=== PATIENT | female | born 1965 | race African-American/Black ===

== ENCOUNTER → 2016-12-02 | Day surgery (SDC) | payer MEDICARE, OTHER ==
[~2016-12-02] MED LIST: AMLO5TAB2 PO; IV RINGERS,LACTATED 1000ML 1,000 ML IV SCH; LIDOCAINE 2% PF Vial for OR 5 ML VIAL. ONE; METF100010 PO; PANT40TA5 PO; PROPOFOL 40 ML IV ONE; VALS40TA2 PO
--- NOTE | 2016-12-02 11:02 | PDOC1 ---
HISTORY & PHYSICAL H&P Carina Muro [id number] 1965 11/27/2016 02:50 PM 10/20 [facility], [facility] OUR PATIENTS COME FIRST [address] [place], [place] [id number] Ph. [phone] Patient: Carina Muro Date of : 1965 Date: 11/27/2016 2:50 PM Visit Type: Office Visit This 51 year old female presents for Abdominal pain. History of Present Illness: 1. Abdominal pain Severity is moderate. Duration is 2 Months. Location is epigastric, midline , RUQ. Associated symptoms include bloating, diarrhea, nausea and vomiting. Pertinent negatives include constipation, diaphoresis and fever. Additional information: Patient has been having significant nausea and abdominal pain and had been given nausea pill and PPI for one month and no response. INTAKE COMMENTS: Intake Comments: Nurse Note: the pt is here today with complaints of abdominal pain. PROBLEM LIST: Problem Description Onset Date Chronic Notes Diabetes mellitus with neurologic complication, without long-term current use of insulin 05/07/2016 Traumatic hematoma of left forearm 11/22/2014 Diabetes mellitus type 2 in obese 05/07/2016 Y Diabetes mellitus without complication 11/09/2009 Y Mapped from [facility] Chronic Conditions table on 07/13/2014 by Joey Caballero. The mapped diagnosis code was Diabetes mellitus without mention of complication,,250.00, added by Vicente Burrows. Onset date 11/09/2009; last addressed on 04/26/2014. Allergic sinusitis 07/26/2015 Bipolar disorder, current episode mixed, severe, without psychotic features Y Hyperlipidemia, unspecified hyperlipidemia type 10/18/2015 Y Left shoulder pain 08/23/2015 Periorbital hematoma of left eye 08/23/2015 Acute recurrent frontal sinusitis 09/13/2015 Spinal enthesopathy of lumbar region 07/31/2016 Medicare annual wellness visit, subsequent 04/16/2016 Acute suppurative otitis media of right ear without spontaneous rupture of tympanic membrane, recurrence not specified 04/16/2016 Nadia vaginitis 04/16/2016 Anemia 11/09/2009 Y Mapped from [facility] Chronic Conditions table on 05/09/2014 by the ICD9 to SNOMED Bulk Mapping Utility. The mapped diagnosis code was Anemia, unspecified, 285.9, added by Vicente Burrows, with responsible provider . Onset date 11/09/2009; last addressed on 06/18/2013. Tendinitis of right shoulder 03/27/2016 Bilateral knee pain 08/23/2015 Allergic rhinitis 08/06/2013 Y Mapped from [facility] Chronic Conditions table on 05/09 by the ICD9 to SNOMED Bulk Mapping Utility. The mapped diagnosis code was Allergic rhinitis, cause unspecified, 477.9, added by Lavonne Drake, with responsible provider Lavonne Drake MD. Onset date 08/06/2013; last addressed on 02/02/2014. Benign essential hypertension 08/06/2013 Y Mapped from [facility] Chronic Conditions table on 05/09/2014 by the ICD9 to SNOMED Bulk Mapping Utility. The mapped diagnosis code was Hypertension, Benign, 401.1, added by Lavonne Drake, with responsible provider Lavonne Drake MD. Onset date 08/06/2013; last addressed on 04/26/2014. Polyarthralgia 08/24/2015 Fibromyalgia 08/24/2015 Adhesive capsulitis of left shoulder 08/24/2015 PAST MEDICAL/SURGICAL HISTORY (Detailed) Disease/disorder Onset Date Management Date Comments R breast cyst removal LAVH D&C Rt Breast BX Partial hysterectomy Bilateral tubal ligation Allergies Anemia bipolar Diabetes DIAGNOSTICS HISTORY: Test Ordered Interpretation Result completed Pulmonary Function Test 07/04/2006 copd 07/04/[address] WITH Contrast 08/24/2012 abnormal Imp: No definite acute orocess seen in the abdomen or pelvis. Possible irregularity (the finding is not certain) assocaiated w\distal small bowel loops. Sigmoid diverticulosis. (L ) renal cyst. 08/21/2012 Test Ordered Ordering Comments Modifier Pulmonary Function Test 07/04/2006 Other Reports Abdomen and Pelvis CT WITH Contrast 08/24/2012 Medications (Active): Started Medication Directions Instruction Stopped 09/03/2016 Diovan HCT 160 mg-12.5 mg tablet TAKE [1] TABLET BY MOUTH ONCE DAILY 11/07/2016 FLONASE 0.05% NASAL SPRAY USE 2 SPRAYS IN EACH NOSTRIL DAILY DIRECTED. 10/24/2010 FreeStyle Lite Strips check blood sugars daily 07/11/2015 gabapentin 300 mg capsule take 1 capsule by oral route 3 times every day 09/03/2016 Norvasc 5 mg tablet take 1 tablet by oral route every day 09/20/2016 pantoprazole 40 mg tablet,delayed release take 1 tablet (40MG) by ORAL route every day in AM 11/07/2016 ProAir HFA 90 mcg/actuation aerosol inhaler inhale 2 puff by inhalation route every 6 hours as needed 07/26/2015 Singulair 10 mg tablet take 1 tablet by oral route every day in the evening 06/05/2016 Symbicort 160 mcg-4.5 mcg/actuation HFA aerosol inhaler inhale 2 puff by inhalation route 2 times every day in the morning and evening 01/03/2016 Voltaren 1 % topical gel apply (2G) by topical route 4 times every day to the affected area(s) 11/07/2016 Zofran 4 mg tablet 1 tid prn nausea 06/08/2015 Zyrtec 10 mg tablet take 1 tablet (10MG) by ORAL route every day at bedtime Allergies: Ingredient Reaction Medication Name Comment NO KNOWN ALLERGIES REVIEW OF SYSTEMS System Neg/Pos Details Constitutional Negative Chills, fever, malaise and weight loss. ENMT Negative Sore throat. Eyes Negative Double vision. Respiratory Negative Dyspnea and wheezing. Cardio Negative Chest pain and irregular heartbeat/palpitations. GI Positive Bloating, Diarrhea, Nausea, Vomiting, See HPI. GI Negative Constipation and see HPI. Negative Dysuria and hematuria. Endocrine Negative Cold intolerance, diaphoresis and heat intolerance. Psych Negative Anxiety. Integumentary Negative Hives and rash. MS Negative Joint pain. Chele/Lymph Negative Easy bleeding and easy bruising. Allergic/Immuno Negative Animals at home and food allergies. VITAL SIGNS Time BP mm/Hg Pulse /min Resp /min Temp F Ht ft Ht in Ht cm Wt lb Wt kg BMI kg/ m2 BSA m2 O2 Sat% 3:14 PM 128/76 90 97.8 5.0 4.00 162.56 163.40 74.117 28.05 1.83 98 MEASURED BY Time Measured by 3:14 PM [facility] PHYSICAL EXAM: Exam Findings Details Constitutional Normal Well developed. Eyes Normal Conjunctiva - Right: Normal, Left: Normal. Sclera - Right: Normal, Left: Normal. Nasopharynx Normal Lips/teeth/gums - Normal. Neck Exam Normal Inspection - Normal. Thyroid gland - Normal. Respiratory Normal Inspection - Normal. Auscultation - Normal. Cardiovascular Normal Regular rate and rhythm. No murmurs, gallops, or rubs. Vascular Normal Pulses - Carotids: Normal, Femoral: Normal, Dorsalis pedis: Normal. Abdomen Normal Inspection - Normal. Anterior palpation - No guarding. No abdominal tenderness. No hepatic enlargement. No splenic enlargement. No hernia. No Ascites. Skin Normal Inspection - Normal. Extremity Normal No edema. Psychiatric Normal Oriented to time, place, person, and situation. Appropriate mood and effect. Assessment/Plan # Detail Type Description 1. Assessment Pain of upper abdomen (R10.10). Patient Plan schedule EGD at Schedule abdominal sonogram. CBC,LFT, Amylase and lipase. Plan Orders Amylase, CBC w/diff today, Hepatic Function Panel today and Lipase to be performed today. Further diagnostic evaluations ordered today include(s) Abdomen Ultrasound; Complete and EGD to be performed today. She is to schedule a follow-up visit with Demarco Drake MD upon completion of work-up Electronically signed by: Demarco Drake MD 11/27/2016 05:00 PM Document generated by: Demarco Drake 11/27/2016 05:00 PM Marlo Jon MD, Family Practice; Oli Barnhart MD Internal Medicine; Saniya Javier MD, Internal Medicine; Lavonne Drake MD Internal Medicine; Demarco Drake MD, Gastroenterology; Og Mabry MD, Rheumatology, [facility], Physical Medicine/Rehab Karissa Escudero APRN ------ 12/02/16 Patient seen and examined. No change in History and physical. DEMARCO DRAKE MD Dec 02, 2016 11:02
--- NOTE | 2016-12-02 12:00 | PDOC4 ---
GI OP Report - Dr. John Date/Time DATE: 12/02/16 TIME: 11:58 Attending Physician Demarco John MD Referring Physician Indications Epigastric abdominal pain Pre-Op See the Anesthesia note for documentation of the administered medications Procedures Upper GI endoscopy Findings - Small hiatus hernia. - Normal stomach. - One duodenal polyp. Biopsied. Clip was placed. Plan - Discharge patient to home. - Patient has a contact number available for emergencies. The signs and symptoms of potential delayed complications were discussed with the patient. Return to normal activities tomorrow. Written discharge instructions were provided to the patient. - Resume regular diet. - Continue present medications. - Await pathology results. - Return to my office in 2 weeks. DEMARCO JOHN MD Dec 02, 2016 12:00
[2016-12-02 12:12] VITALS: BP 150/88
--- NOTE | 2016-12-03 13:45 | PATHOLOGY ---
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 COMMENT: There are no adenomatous changes or evidence of malignancy. (JPM:; d/t: 12/03/16) REPORT ELECTRONICALLY SIGNED BY: Rosalio Boles M.D. DATE/TIME: 12/03/2016 13:44 * * * * * * * * GROSS PATHOLOGY: Received in formalin labeled "Carina Manzanares, duodenal polyp biopsy," is a segment of lambert soft tissue measuring 0.6 cm in maximum dimension. The specimen is submitted entirely in cassette A1. (CAA; 12/02/2016) INITIAL CPT CODE(S): A; 55337 Professional services performed [email or web address] [address] Technical services performed by [email or web address] at [address] [place] [address]. SPECIMEN(S) RECEIVED: A.Duodenal polyp biopsy CLINICAL HISTORY: Abdominal pain PATIENT: CARINA MANZANARES /AGE: 7 1965 (Age: 51) PATIENT #: [id number] ALT CASE #: SPECIMEN COLLECTION DATE: 12/02/2016 SPECIMEN RECEIVED DATE: 12/02/2016 [facility] - [address] [place] [address] - PHONE: [phone] * * * END OF REPORT * * *
== END | disposition home or self-care (01) ==
LOC: ENDOS 10:19
PROVIDERS: ATTEND Internal Medicine Gastroenterology
DX: K31.7 Polyp of stomach and duodenum (principal); K44.9 Diaphragmatic hernia without obstruction or gangrene; M19.049 Primary osteoarthritis, unspecified hand; I10 Essential (primary) hypertension; K21.9 Gastro-esophageal reflux disease without esophagitis; E11.9 Type 2 diabetes mellitus without complications; Z98.42 Cataract extraction status, left eye; Z98.51 Tubal ligation status; Z90.710 Acquired absence of both cervix and uterus
CPT/HCPCS: 43239; 88305; J2704

== ENCOUNTER 2016-12-11 08:45 | Emergency (ER) | payer MEDICARE, OTHER ==
[~2016-12-11] VITALS: Ht 154.9 cm; Wt 73.5 kg
[~2016-12-11 08:45] MED LIST changes: -D-ME118S2 PO
[2016-12-11 08:53] VITALS: BP 136/90
[2016-12-11] MEDS ORDERED: D-ME118S2 PO (09:09)
--- NOTE | 2016-12-11 09:09 | PHYS DOC ---
Past Medical History Past Medical History: Bipolar, Diabetes-Type II, Hypertension Additional Past Medical Histor: BIPOLAR Past Surgical History: Hysterectomy, Other Additional Past Surgical Histo: Tubal ligation, Carpel tunnel R) side, Cyst removal from R) breast, catarac Alcohol Use: None Drug Use: None Adult General Chief Complaint Chief Complaint: COUGH HPI HPI Patient is a 51 year old female who presents emergency room the complain of 4- 5 days of cough, nasal congestion, body aches, sweats and chills. She denies any history of heart or lung disease. Patient is a smoker. She denies antibiotic use, hospitalization or foreign travel within the past 90 days. She denies any ill exposures with others that have similar symptoms. She has not talked to her primary care doctor about this. Review of Systems Review of Systems Constitutional: Denies fever or chills [] Eyes: Denies change in visual acuity, redness, or eye pain [] HENT: Denies nasal congestion or sore throat [] Respiratory: Denies cough or shortness of breath [] Cardiovascular: No additional information not addressed in HPI [] GI: Denies abdominal pain, nausea, vomiting, bloody stools or diarrhea [] : Denies dysuria or hematuria [] Musculoskeletal: Denies back pain or joint pain [] Integument: Denies rash or skin lesions [] Neurologic: Denies headache, focal weakness or sensory changes [] Endocrine: Denies polyuria or polydipsia [] Allergies Allergies Allergies Coded Allergies Type Severity Reaction Last Updated Verified No Known Drug Allergies 12/02/16 No Physical Exam Physical Exam Constitutional: Well developed, well nourished, no acute distress, non-toxic appearance. [] HENT: Normocephalic, atraumatic, bilateral external ears normal, oropharynx moist, no oral exudates, clear rhinorrhea with boggy nasal mucosa. [] Eyes: PERRLA, EOMI, conjunctiva normal, no discharge. [] Neck: Normal range of motion, no tenderness, supple, no stridor. There is no meningismus. There is bilateral anterior and posterior cervical lymphadenopathy. Cardiovascular:Heart rate regular rhythm, no murmur [] Lungs & Thorax: There is no respiratory distress or respiratory fatigue. Patient is able speak in full sentences. Lungs are clear to auscultation bilaterally. Abdomen: Bowel sounds normal, soft, no tenderness, no masses, no pulsatile masses. [] Skin: Warm, dry, no erythema, no rash. [] Back: No tenderness, no CVA tenderness. [] Extremities: No tenderness, no cyanosis, no clubbing, ROM intact, no edema. [] Neurologic: Alert and oriented X 3, normal motor function, normal sensory function, no focal deficits noted. [] Psychologic: Affect normal, judgement normal, mood normal. [] Current Patient Data Vital Signs Vital Signs Date Time Temp Pulse Resp B/P Pulse Ox O2 Delivery O2 Flow Rate FiO2 12/11/16 08:53 97.4 84 18 100 Room Air 97.4 EKG EKG [] Radiology/Procedures Radiology/Procedures [] Course & Med Decision Making Course & Med Decision Making Pertinent Labs and Imaging studies reviewed. (See chart for details) [] Dragon Disclaimer Dragon Disclaimer This electronic medical record was generated, in whole or in part, using a voice recognition dictation system. Departure Departure Impression: Primary Impression: Upper respiratory infection with cough and congestion Disposition: 01 HOME, SELF-CARE Condition: GOOD Referrals: TEJINDER JOHN MD (PCP) Patient Instructions: Upper Respiratory Infection, Adult, [id number] Additional Instructions: 1. Take the medication as prescribed. 2. Review the discharge instructions for self-care and reasons to return to the emergency department. 3. Take the medication as prescribed. You can take [id number] Afrin nasal spray twice a day for 3 days as well as an [id number] decongestant. 4. Call your primary care doctor's office this afternoon to schedule follow-up appointment for reevaluation for next week. Scripts D-Methorphan Hb/Prometh Hcl (Promethazine-Dm Syrup)118 Ml Syrup5 Ml PO PRN Q6HRS COUGH #120 ML Prov:RENETTA CAMPUZANO 12/11/16 RENETTA CAMPUZANO Dec 11, 2016 09:09
== END 2016-12-11 09:13 | disposition home or self-care (01) ==
LOC: ER 08:45
DX: J06.9 Acute upper respiratory infection, unspecified (principal); M79.1 Myalgia; E11.9 Type 2 diabetes mellitus without complications; I10 Essential (primary) hypertension; F31.9 Bipolar disorder, unspecified; F17.200 Nicotine dependence, unspecified, uncomplicated
CPT/HCPCS: 99283

== ENCOUNTER → 2016-12-11 | Outpatient (CLI) | payer MEDICARE, OTHER ==
[2016-12-02 12:12] VITALS: BP 150/88
[~2016-12-11] MED LIST changes: +D-ME118S2 PO; -IV RINGERS,LACTATED 1000ML 1,000 ML IV SCH; -LIDOCAINE 2% PF Vial for OR 5 ML VIAL. ONE; -PROPOFOL 40 ML IV ONE
--- NOTE | 2016-12-11 08:57 | RAD ---
EXAM: Right upper quadrant ultrasound. HISTORY: Right upper quadrant pain. Nausea and vomiting. COMPARISON: None. FINDINGS: Sonographic evaluation of the right upper quadrant was performed. Hyperechogenicity of the hepatic parenchyma suggests mild diffuse hepatic steatosis. There are no focal lesions. The gallbladder is unremarkable without evidence of stones, wall thickening or pericholecystic fluid. There is no sonographic Stanford sign. The common duct measures 5 mm. The visualized portions of the head and body of the pancreas reveal no abnormality. The right kidney measures at least 8.1 cm. This is likely an underestimate. Cortical thickness and echogenicity are preserved. There is no hydronephrosis. The visualized portions of the abdominal aorta and inferior vena cava are grossly patent and normal in caliber. IMPRESSION: 1. Mild diffuse hepatic steatosis. 2. The right kidney measures small at 8.1 cm. This may be an underestimate as there is no clear cortical atrophy.
== END | disposition home or self-care (01) ==
LOC: US 07:58
PROVIDERS: ATTEND Internal Medicine Gastroenterology
DX: R10.9 Unspecified abdominal pain (principal); K76.0 Fatty (change of) liver, not elsewhere classified
CPT/HCPCS: 76705

== ENCOUNTER → 2016-12-27 | Outpatient (CLI) | payer MEDICARE, OTHER ==
[2016-12-11 08:53] VITALS: BP 136/90
[~2016-12-27] VITALS: Ht 154.9 cm; Wt 73.9 kg
[~2016-12-27] MED LIST changes: +D-ME118S2 PO; +SINCALIDE 1.5 MCG in IV NORMAL SALINE 50ML 30 ML IV ONE
--- NOTE | 2016-12-27 10:15 | RAD ---
EXAM: Nuclear hepatobiliary scan with ejection fraction. HISTORY: Abdominal pain/nausea. TECHNIQUE: Serial static images are obtained of the liver and biliary system in a frontal projection following IV administration of 5.5 mCi of technetium-99m Choletec. After filling of the gallbladder, 1.5 mcg of sincalide were infused over 30 minutes and dynamic imaging continued over this period. The gallbladder ejection fraction was calculated. FINDINGS: There is prompt hepatic clearance of tracer from the blood pool. There is homogeneous distribution throughout the liver. There is normal filling of the gallbladder and normal emptying into the biliary system and small bowel. The gallbladder ejection fraction is 90.9% (normal >35%). IMPRESSION: 1. Normal gallbladder ejection fraction.
== END | disposition home or self-care (01) ==
LOC: NM 06:46
PROVIDERS: ATTEND Internal Medicine Gastroenterology
DX: R10.9 Unspecified abdominal pain (principal)
CPT/HCPCS: 78226; 96374; 96375; A9537; J2805

== ENCOUNTER → 2017-01-28 | Outpatient (CLI) | payer MEDICARE, OTHER ==
[~2017-01-28] MED LIST changes: -SINCALIDE 1.5 MCG in IV NORMAL SALINE 50ML 30 ML IV ONE
--- NOTE | 2017-01-28 12:56 | RAD ---
Radionuclide gastric emptying study, 01/28/2017: History: Abdominal pain The study was performed utilizing a solid test meal radiolabeled with 2.0 mCi of technetium 99m sulfur colloid. Over the course of 1 hour there is only minimal gastric emptying visualized. The time/activity curve is relatively flat. An accurate T1/2 cannot be calculated in this situation. IMPRESSION: Markedly delayed gastric emptying.
== END | disposition home or self-care (01) ==
LOC: NM 06:54
PROVIDERS: ATTEND Internal Medicine Gastroenterology
DX: K30 Functional dyspepsia (principal); R11.2 Nausea with vomiting, unspecified
CPT/HCPCS: 78264; A9541

== ENCOUNTER 2017-03-16 20:08 | Emergency (ER) | payer MEDICARE, OTHER ==
[~2017-03-16] VITALS: Ht 154.9 cm; Wt 73.5 kg
[2017-03-16 21:13] LABS: BASO % 0 % (0-3); EOS % 0 % (0-3); HEMATOCRIT 41.9 % (36.0-47.0); LYMPH # 1.1 x10^3/uL (1.0-4.8); LYMPH % 16 % (24-48); MEAN CORPUSCULAR HEMOGLOBIN 29 pg (25-35); MEAN CORPUSCULAR HGB CONC 33 g/dL (31-37); MEAN CORPUSCULAR VOLUME 86 fL (79-100); MONO % 9 % (0-9); NEUT % 75 % (31-73); PLATELET COUNT 312 x10^3/uL (140-400); RED BLOOD COUNT 4.88 x10^6/uL (3.50-5.40); RED CELL DISTRIBUTION WIDTH 15.2 % (11.5-14.5); WHITE BLOOD COUNT 6.6 x10^3/uL (4.0-11.0)
[2017-03-16] MEDS ORDERED: ONDA4TAB10 SL (21:15)
[2017-03-16] MEDS ORDERED: DICY10CA53 PO (21:15)
--- NOTE | 2017-03-16 21:15 | PHYS DOC ---
Past Medical History Past Medical History: Bipolar, Diabetes-Type II, Hypertension Additional Past Medical Histor: BIPOLAR Past Surgical History: Hysterectomy, Other Additional Past Surgical Histo: Tubal ligation, Carpel tunnel R) side, Cyst removal from R) breast, catarac Additional Information: 5 CIGARETTES A DAY Alcohol Use: None Drug Use: None Adult General Chief Complaint Chief Complaint: NAUSEA/VOMITING/DIARRHA HPI HPI 51-year-old female presenting the emergency department with nausea vomiting and diarrhea all day. She reports having a few episodes of nonbloody nonbilious emesis. She reports suspicious food intake earlier. She has a cramping sensation in her abdomen but denies severe abdominal pain. The sensation is intermittent nonradiating mild and without alleviating factors. Review of systems is negative for chest pain shortness of breath fevers chills. She denies blood in her stools or vomit. All other review of systems is negative unless otherwise noted in history of present illness. Review of Systems Review of Systems SEE ABOVE. Current Medications Current Medications Current Medications Medications (Trade) Dose Ordered Sig/Adilene Start Time Stop Time Status Last Admin Dose Admin Hydromorphone HCl (Dilaudid) 0.5 mg 1X ONCE 03/16/17 23:00 03/16/17 23:01 DC 03/16/17 23:12 0.5 MG Info (Do NOT chart on this entry -- for MONITORING) 1 each PRN DAILY PRN 03/16/17 22:30 03/18/17 22:29 Iohexol (Omnipaque 300 Mg/ml) 75 ml STK-MED ONCE 03/16/17 22:26 03/16/17 22:27 DC Ondansetron HCl (Zofran) 4 mg 1X ONCE 03/16/17 23:00 03/16/17 23:01 DC 03/16/17 23:12 4 MG Sodium Chloride 1,000 ml @ 1,000 mls/hr 1X ONCE 03/16/17 21:30 03/16/17 22:29 DC 03/16/17 21:55 1,000 MLS/HR Allergies Allergies Allergies Coded Allergies Type Severity Reaction Last Updated Verified No Known Drug Allergies 12/02/16 No Physical Exam Physical Exam Constitutional: Well developed, well nourished, no acute distress, non-toxic appearance. HENT: Normocephalic, atraumatic, bilateral external ears normal, oropharynx moist, no oral exudates, nose normal. Eyes: PERRLA, EOMI, conjunctiva normal, no discharge. [] Neck: Normal range of motion, no tenderness, supple, no stridor. Cardiovascular:Heart rate regular rhythm, no murmur [] Lungs & Thorax: Bilateral breath sounds clear to auscultation Abdomen: Abdomen is soft and mildly tender generally without rebound tenderness or guarding. Skin: Warm, dry, no erythema, no rash. [] Back: No tenderness, no CVA tenderness. Extremities: No tenderness, no cyanosis, no clubbing, ROM intact, no edema. [] Neurologic: Alert and oriented X 3, normal motor function, normal sensory function, no focal deficits noted. Psychologic: Affect normal, judgement normal, mood normal. [] Current Patient Data Vital Signs Vital Signs Date Time Temp Pulse Resp B/P (MAP) Pulse Ox O2 Delivery O2 Flow Rate FiO2 03/16/17 20:19 97.7 88 22 158/97 (117) 98 Room Air 97.7 Lab Values Laboratory Tests Test 03/16/17 20:33 03/16/17 21:42 White Blood Count 6.6 x10^3/uL (4.0-11.0) Red Blood Count 4.88 x10^6/uL (3.50-5.40) Hemoglobin 14.0 g/dL (12.0-15.5) Hematocrit 41.9 % (36.0-47.0) Mean Corpuscular Volume 86 fL (79-100) Mean Corpuscular Hemoglobin 29 pg (25-35) Mean Corpuscular Hemoglobin Concent 33 g/dL (31-37) Red Cell Distribution Width 15.2 % (11.5-14.5) H Platelet Count 312 x10^3/uL (140-400) Neutrophils (%) (Auto) 75 % (31-73) H Lymphocytes (%) (Auto) 16 % (24-48) L Monocytes (%) (Auto) 9 % (0-9) Eosinophils (%) (Auto) 0 % (0-3) Basophils (%) (Auto) 0 % (0-3) Neutrophils # (Auto) 4.9 x10^3uL (1.8-7.7) Lymphocytes # (Auto) 1.1 x10^3/uL (1.0-4.8) Monocytes # (Auto) 0.6 x10^3/uL (0.0-1.1) Eosinophils # (Auto) 0.0 x10^3/uL (0.0-0.7) Basophils # (Auto) 0.0 x10^3/uL (0.0-0.2) Sodium Level 139 mmol/L (136-145) Potassium Level 3.3 mmol/L (3.5-5.1) L Chloride Level 100 mmol/L (98-107) Carbon Dioxide Level 27 mmol/L (21-32) Anion Gap 12 (6-14) Blood Urea Nitrogen 14 mg/dL (7-20) Creatinine 1.0 mg/dL (0.6-1.0) Estimated GFR (Cockcroft-Gault) 71.3 BUN/Creatinine Ratio 14 (6-20) Glucose Level 99 mg/dL (70-99) Calcium Level 8.8 mg/dL (8.5-10.1) Total Bilirubin 0.5 mg/dL (0.2-1.0) Aspartate Amino Transferase (AST) 23 U/L (15-37) Alanine Aminotransferase (ALT) 30 U/L (14-59) Alkaline Phosphatase 56 U/L (46-116) Total Protein 7.9 g/dL (6.4-8.2) Albumin 4.1 g/dL (3.4-5.0) Albumin/Globulin Ratio 1.1 (1.0-1.7) Lipase 169 U/L (73-393) Urine Collection Type Unknown Urine Color Yellow Urine Clarity Clear Urine pH 5.5 Urine Specific [place] 1.025 Urine Protein Negative mg/dL (NEG-TRACE) Urine Glucose (UA) Negative mg/dL (NEG) Urine Ketones (Stick) Negative mg/dL (NEG) Urine Blood Negative (NEG) Urine Nitrite Negative (NEG) Urine Bilirubin Negative (NEG) Urine Urobilinogen Dipstick 0.2 mg/dL (0.2 mg/dL) Urine Leukocyte Esterase Negative (NEG) Urine RBC 0 /HPF (0-2) Urine WBC Occ /HPF (0-4) Urine Squamous Epithelial Cells Mod /LPF Urine Bacteria Few /HPF (0-FEW) Urine Mucus Mod /LPF Laboratory Tests 03/16/17 20:33 Laboratory Tests 03/16/17 20:33 EKG EKG [] Radiology/Procedures Radiology/Procedures [] Course & Med Decision Making Course & Med Decision Making Pertinent Labs and Imaging studies reviewed. (See chart for details) [] 51-year-old female presenting to the emergency department today with nausea vomiting and diarrhea. Vital signs afebrile normal heart rate. Saturating well on room air. Pertinent physical exam findings showed a soft mildly tender abdomen without rebound tenderness or guarding. Appendix and gallbladder nontender. Blood work obtained. CT the abdomen pelvis obtained. The patient was given IV pain and nausea medications. On reexamination the patient's symptoms had improved significantly. The patient was then discharged home in stable condition to follow up with their primary care physician over the next 2-3 days. They were to return if their symptoms worsened or if they were concerned for any reason. [id number] discharge instructions and return precautions were given. Patient's questions were answered to their satisfaction. Patient is comfortable plan. Dragon Disclaimer Dragon Disclaimer This electronic medical record was generated, in whole or in part, using a voice recognition dictation system. Departure Departure Impression: Primary Impression: Nausea vomiting and diarrhea Disposition: 01 HOME, SELF-CARE Condition: STABLE Referrals: TEJINDER JOHN MD (PCP) Patient Instructions: Diarrhea, Nausea and Vomiting Additional Instructions: Thank you for allowing us to participate in your care today. Followup with your primary care physician in 3 days if your symptoms do not improve. If you do not have a primary care provider you can ask for a list of our primary care providers. Return to the emergency department you have any new or concerning findings. This should be evaluated by the primary care physician and any necessary consulting services for continued management within a few days after discharge. Return to emergency room if you have any new or concerning symptoms including but not limited to fever, chills, nausea, vomiting, intractable pain, any new rashes, chest pain, shortness of air, uncontrolled bleeding, difficulty breathing, and/or vision loss. You may have been prescribed medication that can change in your level of thinking and ability to operate machinery. These medications include hydrocodone and Ativan. Also, Benadryl has been known to do this as well. Be sure to check with your pharmacist and ask if the medications you've prescribed can affect your level of consciousness. I recommend not operating heavy machinery or driving while on medication such as these. Scripts Dicyclomine Hcl (BENTYL) 10 Mg Capsule 1 CAP PO TID, #9 CAP 1 Refill Prov: AMOL KOHLER MD 03/16/17 Ondansetron (ZOFRAN ODT) 4 Mg Tab.rapdis 1 TAB SL PRN Q8HRS Y for NAUSEA, #6 TAB Prov: AMOL KOHLER MD 03/16/17 AMOL KOHLER MD March 16, 2017 21:15
[2017-03-16 21:26] LABS: CALCIUM 8.8 mg/dL (8.5-10.1); GFR 71.3; POTASSIUM 3.3 mmol/L (3.5-5.1)
[2017-03-16] MEDS ORDERED: IV NORMAL SALINE 1000ML BAG 1,000 ML IV ONE (21:30)
[2017-03-16] MEDS ORDERED: ONDANSETRON PF 4 MG/2 ML VIAL. IV ONE ×2 (21:30→23:00)
[2017-03-16 21:32] LABS: ALBUMIN 4.1 g/dL (3.4-5.0); ALBUMIN/GLOBULIN RATIO 1.1 (1.0-1.7); TOTAL BILIRUBIN 0.5 mg/dL (0.2-1.0); TOTAL PROTEIN 7.9 g/dL (6.4-8.2)
[2017-03-16 22:01] LABS: BILIRUBIN,URINE NEGATIVE (NEG); GLUCOSE,URINE NEGATIVE (NEG); NITRITE,URINE NEGATIVE (NEG); PH,URINE 5.5; PROTEIN,URINE NEGATIVE (NEG-TRACE); UROBILINOGEN,URINE 0.2 mg/dL (0.2 mg/dL)
[2017-03-16 22:11] LABS: BACTERIA,URINE FEW /HPF (0-FEW); RBC,URINE 0 /HPF (0-2); SQUAMOUS EPITHELIAL CELL,UR MOD /LPF; WBC,URINE OCC /HPF (0-4)
[2017-03-16] MEDS ORDERED: IOHEXOL 300 MG/ML 75 ML VIAL ONE (22:26)
[2017-03-16] MEDS ORDERED: CONTRAST GIVEN MC PRN (22:30)
[2017-03-16] MEDS ORDERED: IOHEXOL 300 MG/ML 75 ML VIAL IV ONE (23:00)
[2017-03-16] MEDS ORDERED: HYDROmorphone 2 MG/ML VIAL IV ONE (23:00)
[2017-03-16 23:09] VITALS: BP 162/88
--- NOTE | 2017-03-16 23:17 | RAD ---
CT abdomen and pelvis with contrast History: Abdominal pain Technique: After the administration of intravenous contrast, CT imaging was performed of the abdomen and pelvis. No oral contrast was given as per request. Multiplanar images are reviewed. Exposure: One or more of the following individualized dose reduction techniques were utilized for this examination: 1. Automated exposure control 2. Adjustment of the mA and/or kV according to patient size 3. Use of iterative reconstruction technique. Contrast: 75 cc Omnipaque 300 Comparison: None Findings: There is no significant abnormality of the visualized lung bases. There is no significant focal abnormality of the liver, spleen, pancreas, adrenal glands. There is probable hepatic steatosis. There is 2.2 cm hypodense lesion of the inferior left kidney, density measures more suggestive of a cyst 19 Hounsfield units. There is a small accessory spleen. Both kidneys enhance without hydronephrosis. Gallbladder is present without obvious intraluminal abnormality by CT. Accurate evaluation of bowel is limited without oral contrast. There is no significant inflammatory change adjacent to the bowel. There is no evidence of bowel obstruction, free fluid, or free air. Appendix is not clearly identified. There are some air-fluid levels in the colon including rectosigmoid colon. There is very small fat-containing umbilical hernia. The bladder has a normal configuration. Impression: 1. Appendix is not clearly identified on this exam. There are some nonspecific air-fluid levels in the colon, it could be associated with diarrheal state. 2. There is likely hepatic steatosis. 3. Hypodense lesion of the inferior left kidney is most likely a cyst. Electronically signed by: Rodrigo Flower MD (03/16/2017 11:14 PM)
== END 2017-03-16 23:45 | disposition home or self-care (01) ==
LOC: ER 20:08
DX: R11.2 Nausea with vomiting, unspecified (principal); R19.7 Diarrhea, unspecified; R10.84 Generalized abdominal pain; F31.9 Bipolar disorder, unspecified; E11.9 Type 2 diabetes mellitus without complications; I10 Essential (primary) hypertension; F17.210 Nicotine dependence, cigarettes, uncomplicated; Z98.51 Tubal ligation status; Z90.710 Acquired absence of both cervix and uterus
CPT/HCPCS: 36415; 74177; 80053; 81001; 83690; 85027; 96361; 96374; 96375; 96376; 99285; J1170; J2405; J7030; Q9967

== ENCOUNTER 2018-03-21 09:20 | Emergency (ER) | payer MEDICARE, OTHER | END 2018-03-21 09:53 | disposition home or self-care (01) | LOC: ER 09:20 | DX: R05 Cough (principal); E11.9 Type 2 diabetes mellitus without complications; I10 Essential (primary) hypertension; F31.9 Bipolar disorder, unspecified | CPT/HCPCS: 99283 ==

== ENCOUNTER 2018-06-05 17:13 | Emergency (ER) | payer MEDICARE, OTHER ==
[~2018-06-05] VITALS: Ht 154.9 cm; Wt 73.5 kg
[~2018-06-05 17:13] MED LIST changes: +DICY10CA53 PO; +DOXY100T PO; +ONDA4TAB10 SL
[2018-06-05 17:17] VITALS: BP 146/79
[2018-06-05] MEDS ORDERED: IBUPROFEN 800 MG TABLET. PO ONE (18:00)
[2018-06-05] MEDS ORDERED: CYCL10TA2 PO (18:17)
[2018-06-05] MEDS ORDERED: TRAM50TA PO (18:17)
--- NOTE | 2018-06-05 18:17 | PHYS DOC ---
Past Medical History Past Medical History: Bipolar, Diabetes-Type II, Hypertension, Sciatica Additional Past Medical Histor: BIPOLAR Past Surgical History: Hysterectomy, Tubal ligation, Other Additional Past Surgical Histo: Eye surgery, Carpel tunnel R) side, Cyst removal from R) breast Alcohol Use: None Drug Use: None Adult General Chief Complaint Chief Complaint: BACK PAIN OR INJURY [facility] HPI Patient is a 53 year old F who presents with right lower back pain and bilateral hand pain. Patient reports she tripped and fell down a couple of stairs two days ago and injured her back. She denies radiation of pain or loss of bladder or bowel control. Hx of sciatica. Patient also c/o pain to cedrick hands. She reports she had carpal tunnel release several years ago, but does continue to do repetitive work with her hands. She does not have her wrist splint from surgery. Review of Systems Review of Systems Constitutional: Denies fever or chills [] Cardiovascular: No additional information not addressed in HPI [] Musculoskeletal: Back pain, bilateral hand pain Integument: Denies rash or skin lesions [] Neurologic: Denies headache, focal weakness or sensory changes [] All other systems were reviewed and found to be within normal limits, except as documented in this note. Current Medications Current Medications Current Medications Medications (Trade) Dose Ordered Sig/Adilene Start Time Stop Time Status Last Admin Dose Admin Ibuprofen (Motrin) 800 mg 1X ONCE 06/05/18 18:00 06/05/18 18:01 DC 06/05/18 17:41 800 MG Allergies Allergies Allergies Coded Allergies Type Severity Reaction Last Updated Verified No Known Drug Allergies 12/02/16 No Physical Exam Physical Exam Constitutional: Well developed, well nourished, no acute distress, non-toxic appearance. [] HENT: Normocephalic, atraumatic Eyes: PERRLA, EOMI, conjunctiva normal, no discharge. [] Neck: Normal range of motion, no tenderness, supple, no stridor. [] Cardiovascular:Heart rate regular rhythm, no murmur [] Lungs & Thorax: Bilateral breath sounds clear to auscultation [] Skin: Warm, dry, no erythema, no rash. [] Musculoskeletal: Tenderness to right lower back, bilateral hand pain, normal range of motion, tender to palpation Neurologic: Alert and oriented X 3, normal motor function, normal sensory function, no focal deficits noted. [] Psychologic: Affect normal, judgement normal, mood normal. [] Current Patient Data Vital Signs Vital Signs Date Time Temp Pulse Resp B/P (MAP) Pulse Ox O2 Delivery O2 Flow Rate FiO2 06/05/18 17:17 97.5 92 16 146/79 (101) 98 Room Air 97.5 EKG EKG [] Radiology/Procedures Radiology/Procedures X-ray lumber spine -- no acute findings[] Course & Med Decision Making Course & Med Decision Making Pertinent Labs and Imaging studies reviewed. (See chart for details) Patient yelling at staff saying she doesn't want tramadol. She threw the prescription at the RN and yelled at her mother hurry up. Plan: Tramadol Rx, Flexeril Rx, bilateral Velcro wrist splints, follow up with PCP, return precautions reviewed Dragon Disclaimer Dragon Disclaimer This electronic medical record was generated, in whole or in part, using a voice recognition dictation system. Departure Departure Impression: Primary Impression: Back pain Additional Impression: Hand pain Disposition: 01 HOME, SELF-CARE Condition: IMPROVED Referrals: TEJINDER JOHN MD (PCP) Patient Instructions: Back Pain, Adult, Carpal Tunnel Syndrome Scripts Cyclobenzaprine Hcl (CYCLOBENZAPRINE HCL) 10 Mg Tablet 1 TAB PO TID, #21 TAB Prov: ALMA BISHOP APRN 06/05/18 Tramadol Hcl (TRAMADOL HCL) 50 Mg Tablet 50 MG PO Q6HRS PRN for PAIN, #10 TAB Prov: ALMA BISHOP APRN 06/05/18 Problem Qualifiers Primary Impression: Back pain Back pain location: low back pain Chronicity: acute Back pain laterality: right Sciatica presence: without sciatica Qualified Codes: M54.5 - Low back pain Additional Impression: Hand pain Laterality: bilateral Qualified Codes: M79.641 - Pain in right hand; M79.642 - Pain in left hand ALMA BISHOP APRN Jun 05, 2018 18:17
--- NOTE | 2018-06-06 07:35 | RAD ---
Indication: Trauma with fall x2 days. Low back pain. TECHNIQUE: Multiple views of the lumbar spine COMPARISON: None FINDINGS: There are 5 lumbar type vertebral bodies. Lumbar spine is in normal anatomic alignment. No compression deformities. Intervertebral disc spaces are maintained. Minimal bony spurring seen at the endplates. Facet joints are in within normal limits. Mild bilateral SI joint arthritis, right more than left. Because of the density seen projecting at the expected location of the left kidney which may represent a renal stone IMPRESSION: No acute osseous findings in the lumbar spine. Calcific density projecting over the expected location of the left kidney may represent a renal stone. Electronically signed by: Wilfredo Drake DO (06/06/2018 7:31 AM) [facility]
== END 2018-06-05 18:31 | disposition home or self-care (01) ==
LOC: ER 17:13
DX: M54.5 Low back pain (principal); G89.11 Acute pain due to trauma; M79.642 Pain in left hand; M79.641 Pain in right hand; F31.9 Bipolar disorder, unspecified; E11.9 Type 2 diabetes mellitus without complications; I10 Essential (primary) hypertension; W01.0XXA Fall on same level from slipping, tripping and stumbling without subsequent striking against object, initial encounter; Y93.89 Activity, other specified; Y92.89 Other specified places as the place of occurrence of the external cause; Y99.8 Other external cause status
CPT/HCPCS: 72100; 99284

== ENCOUNTER 2018-10-11 14:53 | Emergency (ER) | payer MEDICARE, OTHER ==
[~2018-10-11] VITALS: Ht 154.9 cm; Wt 73.5 kg
[~2018-10-11 14:53] MED LIST changes: -AMLO5TAB2 PO; +AMLO5TAB7 PO; +CYCL10TA2 PO; +TRAM50TA PO
[2018-10-11] MEDS ORDERED: AZIT250T6 PO (15:29)
[2018-10-11] MEDS ORDERED: METH4TAB2 PO (15:29)
[2018-10-11] MEDS ORDERED: BENZ100C PO (15:29)
[2018-10-11] MEDS ORDERED: IPRATRPIUM/ALBUTEROL 0.5/2.5MG 3 ML NEBU. NEB ONE (15:30)
[2018-10-11] MEDS ORDERED: IPRATRPIUM/ALBUTEROL 0.5/2.5MG 3 ML NEBU. ONE (15:30)
--- NOTE | 2018-10-11 15:31 | PHYS DOC ---
Past Medical History Past Medical History: Bipolar, Diabetes-Type II, Hypertension, Sciatica Additional Past Medical Histor: BIPOLAR Past Surgical History: Hysterectomy, Tubal ligation, Other Additional Past Surgical Histo: Eye surgery, Carpel tunnel R) side, Cyst removal from R) breast Alcohol Use: None Drug Use: None Adult General Chief Complaint Chief Complaint: COUGH HPI HPI Patient is a 53 year old female who presents with states she's had upper respiratory infection for the last 2 weeks. She states she went to her doctor on the and was told she was flu negative and had an upper history infection versus give her Cipro for. She states that she is starting to feel slightly better saying that her throat doesn't hurt and she is been not running a fever. She states she still not fully feeling better yet. Patient states that her only history is hypertension and she does smoke. She is 90% on room air, 87 heart rate, 150/92. Review of Systems Review of Systems Constitutional: Denies fever or chills [] Eyes: Denies change in visual acuity, redness, or eye pain [] HENT: nasal congestion or denies sore throat [] Respiratory: cough or shortness of breath [] Cardiovascular: No additional information not addressed in HPI [] GI: Denies abdominal pain, nausea, vomiting, bloody stools or diarrhea [] : Denies dysuria or hematuria [] Musculoskeletal: Generalized body aches. Denies back pain or joint pain [] Integument: Denies rash or skin lesions [] Neurologic: Denies headache, focal weakness or sensory changes [] All other systems were reviewed and found to be within normal limits, except as documented in this note. Current Medications Current Medications Current Medications Medications (Trade) Dose Ordered Sig/Adilene Start Time Stop Time Status Last Admin Dose Admin Albuterol/ Ipratropium (Duoneb) 3 ml STK-MED ONCE 10/11/18 15:30 10/11/18 15:31 DC Allergies Allergies Allergies Coded Allergies Type Severity Reaction Last Updated Verified No Known Drug Allergies 12/02/16 No Physical Exam Physical Exam Constitutional: Well developed, well nourished, no acute distress, non-toxic appearance. [] HENT: Normocephalic, atraumatic, bilateral external ears normal, oropharynx moist, no oral exudates, nose normal. Throat is reddened without exudates. [] Eyes: PERRLA, EOMI, conjunctiva normal, no discharge. [] Neck: Normal range of motion, no tenderness, supple, no stridor. [] Cardiovascular:Heart rate regular rhythm, no murmur [] Lungs & Thorax: Bilateral upper lobes have wheezes and lower lobes are diminished. Abdomen: Bowel sounds normal, soft, no tenderness, no masses, no pulsatile masses. [] Skin: Warm, dry, no erythema, no rash. [] Back: No tenderness, no CVA tenderness. [] Extremities: No tenderness, no cyanosis, no clubbing, ROM intact, no edema. [] Neurologic: Alert and oriented X 3, normal motor function, normal sensory function, no focal deficits noted. [] Psychologic: Affect normal, judgement normal, mood normal. [] Current Patient Data Vital Signs Vital Signs Date Time Temp Pulse Resp B/P (MAP) Pulse Ox O2 Delivery O2 Flow Rate FiO2 10/11/18 15:57 86 23 162/86 (111) 95 Room Air 10/11/18 15:10 97.5 97.5 EKG EKG [] Radiology/Procedures Radiology/Procedures [] Course & Med Decision Making Course & Med Decision Making Patient is a 53 year old female who presents with states she's had upper respiratory infection for the last 2 weeks. She states she went to her doctor on the and was told she was flu negative and had an upper history infection versus give her Cipro for. She states that she is starting to feel slightly better saying that her throat doesn't hurt and she is been not running a fever. She states she still not fully feeling better yet. Patient states that her only history is hypertension and she does smoke. She is 90% on room air, 87 heart rate, 150/92. Alert and oriented. Skin is pink warm and dry. He gets membranes are moist. She speaks in full clear sentences. States that she does feel slightly short of air states that her back and ribs hurt from coughing and states that she is still coughing up some mucus but she's not been looking at the color. Upper lung lobes bilaterally have wheezes but diminished in lower lung lobes bilaterally. She is afebrile. Abdomen is soft and nontender. She denies any chest pain, dizziness, nausea, vomiting, diarrhea, abdominal pain. There is but there are no exudates. Abdomen is soft and nontender. Bilateral ear tympanic some pearly white. She states that she does have a albuterol inhaler at home states get bronchitis. I switched patient's antibiotics to azithromycin, given her prescription for Medrol Dosepak, Arnold Barrios. Patient is to follow-up with her doctor soon she can sit she she's not getting better. Patient is drinking plenty of fluids. Patient is stable and in no distress. Patient is given a DuoNeb before she leaves. Dragon Disclaimer Dragon Disclaimer This electronic medical record was generated, in whole or in part, using a voice recognition dictation system. Departure Departure Impression: Primary Impression: Upper respiratory infection with cough and congestion Disposition: HOME, SELF-CARE Condition: STABLE Referrals: TEJINDER JOHN MD (PCP) Patient Instructions: Upper Respiratory Infection, Adult Additional Instructions: FOLLOW UP WITH PRIMARY CARE SCHEDULED. TAKE MEDICATIONS PRESCRIBED. Scripts Azithromycin (AZITHROMYCIN TABLET) 250 Mg Tablet 1 PKG PO UD, #6 TAB Prov: PATSY LYNN PROCESS ENG 10/11/18 Benzonatate (TESSALON PERLE) 100 Mg Capsule 1 CAP PO TID, #30 CAP Prov: PATSY LYNN PROCESS ENG 10/11/18 Methylprednisolone (MEDROL) 4 Mg Tab.ds.pk 1 PKG PO UD, #1 PKG Prov: PATSY LYNN PROCESS ENG 10/11/18 PATSY LYNN APRN Oct 11, 2018 15:31
[2018-10-11 15:57] VITALS: BP 162/86
== END 2018-10-11 16:10 | disposition home or self-care (01) ==
LOC: ER 14:53
DX: J06.9 Acute upper respiratory infection, unspecified (principal); R50.9 Fever, unspecified; I10 Essential (primary) hypertension; F17.200 Nicotine dependence, unspecified, uncomplicated; E11.9 Type 2 diabetes mellitus without complications; F31.9 Bipolar disorder, unspecified; Z90.710 Acquired absence of both cervix and uterus; Z98.51 Tubal ligation status
CPT/HCPCS: 94640; 99283; J7620

== ENCOUNTER 2019-01-08 20:20 | Emergency (ER) | payer MEDICARE, OTHER ==
[~2019-01-08 20:20] MED LIST changes: +AMLO5TAB10 PO; -AMLO5TAB7 PO; +AZIT250T6 PO; +BENZ100C PO; +METH4TAB2 PO
== END 2019-01-08 20:44 | disposition left against medical advice (07) ==
LOC: ER 20:20
DX: M54.5 Low back pain (principal); G89.11 Acute pain due to trauma; Z53.21 Procedure and treatment not carried out due to patient leaving prior to being seen by health care provider; W18.39XA Other fall on same level, initial encounter; Y93.89 Activity, other specified; Y99.8 Other external cause status; Y92.89 Other specified places as the place of occurrence of the external cause

== ENCOUNTER 2019-04-07 17:54 | Emergency (ER) | payer MEDICARE, OTHER ==
[~2019-04-07] VITALS: Ht 154.9 cm; Wt 72.1 kg
[2019-04-07 18:33] VITALS: BP 154/86
[2019-04-07 19:13] LABS: BASO # 0.1 x10^3/uL (0.0-0.2); BASO % 1 % (0-3); EOS # 0.1 x10^3/uL (0.0-0.7); EOS % 2 % (0-3); HEMATOCRIT 38.5 % (36.0-47.0); HEMOGLOBIN 13.3 g/dL (12.0-15.5); LYMPH # 2.7 x10^3/uL (1.0-4.8); LYMPH % 34 % (24-48); MEAN CORPUSCULAR HEMOGLOBIN 29 pg (25-35); MEAN CORPUSCULAR HGB CONC 35 g/dL (31-37); MEAN CORPUSCULAR VOLUME 83 fL (79-100); MONO # 0.8 x10^3/uL (0.0-1.1); MONO % 10 % (0-9); NEUT # 4.2 x10^3uL (1.8-7.7); NEUT % 53 % (31-73); PLATELET COUNT 318 x10^3/uL (140-400); RED BLOOD COUNT 4.61 x10^6/uL (3.50-5.40); RED CELL DISTRIBUTION WIDTH 14.7 % (11.5-14.5); WHITE BLOOD COUNT 7.9 x10^3/uL (4.0-11.0)
[2019-04-07] MEDS ORDERED: IV NORMAL SALINE 1000ML BAG 1,000 ML IV ONE (19:15)
[2019-04-07 19:22] LABS: CALCIUM 9.5 mg/dL (8.5-10.1); CREATININE 0.8 mg/dL (0.6-1.0); GFR 91.5; POTASSIUM 4.1 mmol/L (3.5-5.1)
[2019-04-07] MEDS ORDERED: ONDANSETRON PF 4 MG/2 ML VIAL. IM ONE (19:45)
--- NOTE | 2019-04-07 19:45 | PHYS DOC ---
Past Medical History Past Medical History: Bipolar, Diabetes-Type II, Hypertension, Sciatica Additional Past Medical Histor: BIPOLAR Past Surgical History: Hysterectomy, Tubal ligation, Other Additional Past Surgical Histo: Eye surgery, Carpel tunnel R) side, Cyst removal from R) breast Alcohol Use: None Drug Use: None Adult General Chief Complaint Chief Complaint: DIZZY/LIGHT HEADED HPI HPI Patient is a 53 year old f who presents to the ED for evaluation. Patient is a somewhat poor historian with poor insight into her chronic medical conditions and current medications. Patient is also somewhat difficult to get a clear timeline. Patient has some apparent chronic nausea as she gets monthly prescriptions for nausea medications from her primary care physician. Patient reports that she went to go see her primary doctor a few days ago with complaints of arthritis to bilateral hands. She was started on meloxicam, duloxetine, venlafaxine. States that she started all of these medications yesterday. Patient reports increased nausea and some intermittent positional lig htheadedness today. Patient states that she was at work in a hot environment when she started to have a near syncopal event. Patient did not collapse to the ground. Patient denies any chest pain. Patient denies any shortness of breath. Patient denies any palpitations. At this time patient reports some baseline nausea and denies any other symptoms. Patient concerned that symptoms related to new medications. Patient is unaware why she was started on the duloxetine and venlafaxine. Review of Systems Review of Systems Constitutional: Denies fever or chills [] Eyes: Denies change in visual acuity, redness, or eye pain [] HENT: Denies nasal congestion or sore throat [] Respiratory: Denies cough or shortness of breath [] Cardiovascular: No additional information not addressed in HPI [] GI: Denies abdominal pain, nausea, vomiting, bloody stools or diarrhea [] : Denies dysuria or hematuria [] Musculoskeletal: Denies back pain or joint pain [] Integument: Denies rash or skin lesions [] Neurologic: Denies headache, focal weakness or sensory changes [] Endocrine: Denies polyuria or polydipsia [] All other systems were reviewed and found to be within normal limits, except as documented in this note. Current Medications Current Medications Current Medications Medications (Trade) Dose Ordered Sig/Adilene Start Time Stop Time Status Last Admin Dose Admin Ondansetron HCl (Zofran) 4 mg 1X ONCE 04/07/19 20:00 04/07/19 20:01 04/07/19 19:59 4 MG Sodium Chloride 1,000 ml @ 1,000 mls/hr 1X ONCE 04/07/19 19:15 04/07/19 20:14 04/07/19 19:17 1,000 MLS/HR Allergies Allergies Allergies Coded Allergies Type Severity Reaction Last Updated Verified No Known Drug Allergies 12/02/16 No Physical Exam Physical Exam Constitutional: Well developed, well nourished, no acute distress, non-toxic appearance. [] HENT: Normocephalic, atraumatic, bilateral external ears normal, oropharynx moist, no oral exudates, nose normal. [] Eyes: PERRLA, EOMI, conjunctiva normal, no discharge. [] Neck: Normal range of motion, no tenderness, supple, no stridor. [] Cardiovascular:Heart rate regular rhythm, no murmur [] Lungs & Thorax: Bilateral breath sounds clear to auscultation [] Abdomen: Bowel sounds normal, soft, no tenderness, no masses, no pulsatile masses. [] Skin: Warm, dry, no erythema, no rash. [] Back: No tenderness, no CVA tenderness. [] Extremities: No tenderness, no cyanosis, no clubbing, ROM intact, no edema. [] Neurologic: Alert and oriented X 3, normal motor function, normal sensory function, no focal deficits noted. [] Psychologic: Affect normal, judgement normal, mood normal. [] Current Patient Data Vital Signs Vital Signs Date Time Temp Pulse Resp B/P (MAP) Pulse Ox O2 Delivery O2 Flow Rate FiO2 04/07/19 18:33 73 04/07/19 18:07 97.7 20 154/100 (118) 100 Room Air 97.7 Lab Values Laboratory Tests Test 04/07/19 18:55 White Blood Count 7.9 x10^3/uL (4.0-11.0) Red Blood Count 4.61 x10^6/uL (3.50-5.40) Hemoglobin 13.3 g/dL (12.0-15.5) Hematocrit 38.5 % (36.0-47.0) Mean Corpuscular Volume 83 fL (79-100) Mean Corpuscular Hemoglobin 29 pg (25-35) Mean Corpuscular Hemoglobin Concent 35 g/dL (31-37) Red Cell Distribution Width 14.7 % (11.5-14.5) H Platelet Count 318 x10^3/uL (140-400) Neutrophils (%) (Auto) 53 % (31-73) Lymphocytes (%) (Auto) 34 % (24-48) Monocytes (%) (Auto) 10 % (0-9) H Eosinophils (%) (Auto) 2 % (0-3) Basophils (%) (Auto) 1 % (0-3) Neutrophils # (Auto) 4.2 x10^3uL (1.8-7.7) Lymphocytes # (Auto) 2.7 x10^3/uL (1.0-4.8) Monocytes # (Auto) 0.8 x10^3/uL (0.0-1.1) Eosinophils # (Auto) 0.1 x10^3/uL (0.0-0.7) Basophils # (Auto) 0.1 x10^3/uL (0.0-0.2) Sodium Level 136 mmol/L (136-145) Potassium Level 4.1 mmol/L (3.5-5.1) Chloride Level 100 mmol/L (98-107) Carbon Dioxide Level 26 mmol/L (21-32) Anion Gap 10 (6-14) Blood Urea Nitrogen 17 mg/dL (7-20) Creatinine 0.8 mg/dL (0.6-1.0) Estimated GFR (Cockcroft-Gault) 91.5 Glucose Level 100 mg/dL (70-99) H Calcium Level 9.5 mg/dL (8.5-10.1) Laboratory Tests 04/07/19 18:55 Laboratory Tests 04/07/19 18:55 EKG EKG 1814: NSR, No ST segment changes, HR 70 BPM. [] Radiology/Procedures Radiology/Procedures [] Course & Med Decision Making Course & Med Decision Making Pertinent Labs and Imaging studies reviewed. (See chart for details) []20:02: Nausea control and tolerating by mouth in ER. Has some nausea medication at home. Has a chronic nausea component. Labs reassuring with no acute life-threatening findings. Patient does have diagnosis of diabetes. EKG with normal sinus rhythm. Stable vital signs in the ER including orthostatics. Patient given IV fluids in the ER. Patient feels better. Advised holding the duloxetine and venlafaxine pending continue discussion with PCP. Encouraged continuation of meloxicam for joint pain but advised taken with food. Discussed labs with patient. ER return precautions given. Patient verbalized understanding. All questions answered. Dragon Disclaimer Dragon Disclaimer This electronic medical record was generated, in whole or in part, using a voice recognition dictation system. Departure Departure Impression: Primary Impression: Lightheadedness Additional Impression: Nausea Disposition: HOME, SELF-CARE Referrals: TEJINDER JOHN MD (PCP) Patient Instructions: Dizziness, [id number], Nausea, Adult Additional Instructions: Thank you for coming to [facility]. Please read the attached handouts. Please follow-up with your primary care physician. Stop the duloxetine and venlafaxine until further discussion with your primary care doctor. Call your primary care doctor tomorrow. Return to the ER if your symptoms worsen or you have any other concerns. Problem Qualifiers CECY BURTON DO Apr 07, 2019 19:45
[2019-04-07] MEDS ORDERED: ONDANSETRON PF 4 MG/2 ML VIAL. IV ONE (20:00)
== END 2019-04-07 20:19 | disposition home or self-care (01) ==
LOC: ER 17:54
DX: R42 Dizziness and giddiness (principal); R11.0 Nausea; F31.9 Bipolar disorder, unspecified; E11.9 Type 2 diabetes mellitus without complications; I10 Essential (primary) hypertension; Z90.710 Acquired absence of both cervix and uterus; Z98.51 Tubal ligation status
CPT/HCPCS: 36415; 80048; 85025; 96361; 96374; 99284; J2405; J7030

== ENCOUNTER 2019-12-29 16:01 | Emergency (ER) | payer MEDICARE ==
[~2019-12-29 16:01] MED LIST changes: -D-ME118S2 PO; -PANT40TA5 PO; +PANT40TA77 PO; +PROM118S9 PO
== END 2019-12-29 17:34 | disposition left against medical advice (07) ==
LOC: ER 16:01
DX: R05 Cough (principal); J02.9 Acute pharyngitis, unspecified; M79.10 Myalgia, unspecified site; R61 Generalized hyperhidrosis; Z53.21 Procedure and treatment not carried out due to patient leaving prior to being seen by health care provider

== ENCOUNTER 2020-03-03 17:52 | Emergency (ER) | payer MEDICARE ==
[~2020-03-03] VITALS: Ht 154.9 cm; Wt 72.4 kg
[2020-03-03 18:02] VITALS: BP 136/79
[2020-03-03] MEDS ORDERED: METH4TAB2 PO (18:19)
[2020-03-03] MEDS ORDERED: IBUP-1060 PO (18:19)
--- NOTE | 2020-03-03 18:19 | PHYS DOC ---
Past Medical History Past Medical History: Bipolar, Diabetes-Type II, Hypertension, Sciatica Additional Past Medical Histor: BIPOLAR Past Surgical History: Hysterectomy, Tubal ligation, Other Additional Past Surgical Histo: Eye surgery, Carpel tunnel R) side, Cyst removal from R) breast Smoking Status: Current Every Day Smoker Alcohol Use: None Drug Use: None General Adult EDM: Chief Complaint: UPPER EXTREMITY PAIN HPI: HPI: Patient is a 54-year-old female patient who presents the ED today complaining of bilateral wrist pain that has been going on intermittently for the last 3 months. Patient reports the right side is worse rating the pain as moderate. Patient reports the pain is worse on range of motion. 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 She reports she has been seen by the PCP who put her on gabapentin and give her a wrist brace which is not helping. Review of Systems: Review of Systems: Constitutional: Denies fever or chills. [] Musculoskeletal: Reports bilateral wrist pain Integument: Denies rash. [] Neurologic: Denies headache, focal weakness or sensory changes. [] Psychiatric: Denies depression or anxiety. [] Heart Score: Risk Factors: Risk Factors: DM, Current or recent (<one month) smoker, HTN, HLP, family history of CAD, obesity. Risk Scores: Score 0 - 3: 2.5% MACE over next 6 weeks - Discharge Home Score 4 - 6: 20.3% MACE over next 6 weeks - Admit for Clinical Observation Score 7 - 10: 72.7% MACE over next 6 weeks - Early Invasive Strategies Allergies: Allergies: Allergies Coded Allergies Type Severity Reaction Last Updated Verified No Known Drug Allergies 12/02/16 No Physical Exam: PE: Constitutional: Well developed, well nourished, no acute distress, non-toxic appearance. [] Skin: Warm, dry, no erythema, no rash. [] Back: No tenderness, no CVA tenderness. [] Extremities: Bilateral wrists with no obvious deformity. Full range of motion to bilateral wrists. Tenderness on palpation of the right lateral wrist. Adequate radial, median, ulnar sensation to bilateral wrists. +2 right and left radial pulses. Cap refill less than 2 seconds the right as well as left fingers. Neurologic: Alert and oriented X 3, normal motor function, normal sensory function, no focal deficits noted. [] Psychologic: Affect normal, judgement normal, mood normal. [] EKG: EKG: [] Radiology/Procedures: Radiology/Procedures: [] Course & Med Decision Making: Course & Med Decision Making Pertinent Labs and Imaging studies reviewed. (See chart for details) This is a 54-year-old female patient presenting to the ED today with bilateral wrist pain consistent with carpal tunnel, symptoms have been going on for 3 months. Currently being seen by the PCP for the same. Was discharged home and provided orthopedic doctor for follow-up. Velcro splint provided for the right wrist. Splint applied by the senior technical program manager, neurovascular exam is intact. Dragon Disclaimer: Dragon Disclaimer: This electronic medical record was generated, in whole or in part, using a voice recognition dictation system. Departure Departure Impression: Primary Impression: Carpal tunnel syndrome of right wrist Additional Impression: Carpal tunnel syndrome of left wrist Disposition: HOME, SELF-CARE Condition: STABLE Referrals: TEJINDER JOHN MD (PCP) follow up in 1-2 weeks ABDON BURNS II, MD follow up in 1-2 weeks Patient Instructions: Carpal Tunnel Syndrome Additional Instructions: You were seen for bilateral wrist pain likely carpal tunnel syndrome. Try to ice elevate the extremity. Take the prescribed medications as ordered, follow- up with your own doctor and the provided orthopedic doctor in 1 to 2 weeks. Scripts Methylprednisolone (MEDROL) 4 Mg Tab.ds.pk 1 PKG PO UD, #1 PKG Prov: MUTUNGAJOSESITO PT SITTER 03/03/20 Ibuprofen (IBUPROFEN) 800 Mg Tablet 800 MG PO PRN Q6HRS PRN for INFLAMMATION, #30 TAB Prov: MUTMACKAJOSESITO PT SITTER 03/03/20 MUTUNGAJOSESITO PT SITTER March 03, 2020 18:19
== END 2020-03-03 18:24 | disposition home or self-care (01) ==
LOC: ER 17:52
DX: G56.03 Carpal tunnel syndrome, bilateral upper limbs (principal); E11.9 Type 2 diabetes mellitus without complications; I10 Essential (primary) hypertension; F31.9 Bipolar disorder, unspecified; F17.200 Nicotine dependence, unspecified, uncomplicated
CPT/HCPCS: 29125; 99283

== ENCOUNTER → 2020-07-07 | Outpatient (CLI) | payer MEDICARE, OTHER ==
[~2020-07-07] MED LIST changes: +HYDR-3165 PO; +IBUP-1060 PO; +PROM118S10 PO; -PROM118S9 PO
== END | disposition home or self-care (01) ==
LOC: LAB 13:29
PROVIDERS: ATTEND Orthopaedic Surgery
DX: Z01.812 Encounter for preprocedural laboratory examination (principal); Z20.828 Contact with and (suspected) exposure to other viral communicable diseases; G56.02 Carpal tunnel syndrome, left upper limb
CPT/HCPCS: U0003-CS

== ENCOUNTER 2020-07-11 06:06 | Day surgery (SDC) | payer MEDICARE, OTHER ==
[~2020-07-11] VITALS: Ht 154.9 cm; Wt 72.6 kg
[~2020-07-11 06:06] MED LIST changes: -HYDR-3165 PO
[2020-07-11] MEDS ORDERED: DEXAMETHASONE SOD PHOS 4 MG/ML VIAL ONE (07:05)
[2020-07-11] MEDS ORDERED: MIDAZOLAM HCL/PF 2 MG/2 ML VIAL. ONE (07:05)
[2020-07-11] MEDS ORDERED: LIDOCAINE 2% PF 5 ML VIAL. ONE (07:05)
[2020-07-11] MEDS ORDERED: SEVOFLURANE 61 TO 120 MINUTES. IH ONE (07:05)
[2020-07-11] MEDS ORDERED: PROPOFOL 10 MG/ML (20ML) VIAL. IV ONE (07:05)
[2020-07-11] MEDS ORDERED: KETOROLAC 30 MG/ML VIAL. ONE (07:05)
[2020-07-11] MEDS ORDERED: fentaNYL PF VIAL 100 MCG/2 ML VIAL ONE ×2 (07:05→08:46)
[2020-07-11] MEDS ORDERED: ONDANSETRON PF 4 MG/2 ML VIAL. ONE (07:06)
[2020-07-11] MEDS ORDERED: IV RINGERS,LACTATED 1000ML 1,000 ML IV SCH ×2 (07:15→08:47)
[2020-07-11] MEDS ORDERED: SCOPOLAMINE 1.5MG PATCH. TD ONE ×2 (07:15→07:17)
[2020-07-11] MEDS ORDERED: HYDR-3165 PO (07:18)
--- NOTE | 2020-07-11 07:20 | DISCH ---
DISCHARGE INSTRUCTIONS Condition on Discharge Condition on Discharge: Stable Activity After Discharge Activity Instructions for Disc: Other, see below (Fine motor use permitted such as eating typing writing; no hard grasp or lifting more than about 5 pounds or a half a gallon of milk) Bathing Instructions: Shower-keep dressing dry Lifting Instructions after Dis: No heavy lifting Weight Bearing Status after Di: As tolerated Wound Incision Care Wound/Incision Care: Ice to area for comfort, Do not change dressing Contacting the DRRakesh after DC Call your doctor for: Concerns you may have Follow-Up Follow up with: Dr. Dior 10 days HE DIOR MD Jul 11, 2020 07:20
[2020-07-11] MEDS ORDERED: BUPIVACAINE MPF 0.25% 30 ML VIAL. ONE (07:22)
[2020-07-11] MEDS ORDERED: PHENYLEPHRINE in 0.9% NACL PF 1 MG/10 ML SYRINGE. IV ONE (08:05)
[2020-07-11] MEDS ORDERED: HYDROcodone/APAP 7.5/325MG 1 TAB TABLET PO ONE (08:30)
[2020-07-11] MEDS ORDERED: fentaNYL PF VIAL 100 MCG/2 ML VIAL IV PRN (09:00)
[2020-07-11] MEDS ORDERED: MORPHINE SULFATE 2 MG/ML VIAL. IV PRN (09:00)
[2020-07-11] MEDS ORDERED: ONDANSETRON PF 4 MG/2 ML VIAL. IV PRN (09:00)
[2020-07-11] MEDS ORDERED: LIDOCAINE 1% PF 2 ML VIAL. ID PRN (09:00)
[2020-07-11] MEDS ORDERED: HYDROmorphone 2 MG/ML VIAL IV PRN (09:00)
[2020-07-11] MEDS ORDERED: PROCHLORPERAZINE 10 MG/2 ML VIAL. IV PRN (09:00)
[2020-07-11] MEDS: fentaNYL PF VIAL 100 MCG/2 ML VIAL IV PRN ×2 (09:09→09:18)
[2020-07-11 09:45] VITALS: BP 139/85
--- NOTE | 2020-07-11 14:40 | PDOC4 ---
Operative Note Operative Note Date of surgery: 07/11/2020 Preoperative diagnosis: Left carpal tunnel syndrome, right de Quervain's Tenosynovitis Postoperative diagnosis: Same Operative procedure: Left carpal tunnel release, right first dorsal compartment release Surgeon: [employer] Scientist: Edis Burciaga nurse practitioner Anesthesia General Estimated blood loss: 25 cc Complications: None Operative indications: Please see my orthopedic clinic notes for detailed operative indications and note that she is refractory median nerve compression at the carpal tunnel verified by EMG and right first dorsal compartment tendinitis recurrent postinjection. I had gone over with her the possibility of continued pain nerve or blood vessel damage medical or other anesthetic complications among others she agrees to proceed with surgical evaluation and treatment. Operative text: Patient was identified procedure verified patient placed in the supine position on the operating table. After adequate amounts of general anesthesia were administered the left upper extremity was prepped and draped in standard sterile fashion with a upper arm tourniquet and after timeout was performed patient procedure identified and verified left upper extremity was exsanguinated by Esmarch bandage tourniquet inflated to 250 mmHg and a longitudinal incision was made just distal to the distal palmar crease dissection carried out down to the transverse carpal ligament which was divided sharply and was divided both proximally and distally under direct vision and verified palpably. Median nerve was noted to have moderate nerve compression te ndons were noted to be intact with no synovitis. Closure accomplished with nylon suture in a vertical mattress fashion. Attention was then turned to the right upper extremity which was prepped and draped in standard sterile fashion and after procedure confirmed right upper extremity was exsanguinated by Esmarch bandage which was then used as a tourniquet and first dorsal compartment was released fully with a longitudinal incision and noted to be very thickened with full excursion of the tendons and no compromise in the first dorsal compartment and no subluxation noted. Bleeding points controlled by electrocautery and closure accomplished with nylon suture in a vertical mattress fashion. Sterile soft dressings were applied to both wrists fingers noted be warm and pink following deflation of the tourniquet on the left side and removal of the Esmarch bandage on the right and patient was returned to recovery room in stable condition having tolerated procedure well. Edis Burciaga nurse practitioner was present for the procedure and assisted in the prepping draping positioning retraction closure and dressings HE PULLIAM MD Jul 11, 2020 14:40
== END 2020-07-11 10:00 | disposition home or self-care (01) ==
LOC: SURG 06:06
PROVIDERS: ATTEND Orthopaedic Surgery
PROC: 01N50ZZ Release Median Nerve, Open Approach (ICD-10-PCS; principal; 2020-07-11 07:30)
DX: G56.02 Carpal tunnel syndrome, left upper limb (principal); M65.88 Other synovitis and tenosynovitis, other site; F17.210 Nicotine dependence, cigarettes, uncomplicated; I10 Essential (primary) hypertension; K21.9 Gastro-esophageal reflux disease without esophagitis; E11.9 Type 2 diabetes mellitus without complications; Z98.51 Tubal ligation status; Z79.899 Other long term (current) drug therapy; Z98.890 Other specified postprocedural states; Z79.84 Long term (current) use of oral hypoglycemic drugs
CPT/HCPCS: 25000; 64721; 82962; A7015; J0690; J1100; J1885; J2250; J2370; J2405; J2704; J3010; J3490

== ENCOUNTER 2020-07-14 12:48 | Emergency (ER) | payer MEDICARE, OTHER ==
[~2020-07-14] VITALS: Ht 154.9 cm; Wt 71.0 kg
[~2020-07-14 12:48] MED LIST changes: +HYDR-3165 PO
[2020-07-14 13:08] VITALS: BP 129/68
--- NOTE | 2020-07-14 13:27 | PHYS DOC ---
Past Medical History Past Medical History: Bipolar, Diabetes-Type II, Hypertension, Sciatica Additional Past Medical Histor: BIPOLAR Past Surgical History: Hysterectomy, Tubal ligation, Other Additional Past Surgical Histo: Eye surgery, Carpel tunnel R) side, Cyst removal from R) breast,cataracts Smoking Status: Current Every Day Smoker Alcohol Use: None Drug Use: None General Adult EDM: Chief Complaint: HAND PROBLEM HPI: HPI: 55-year-old female presenting to the emergency department today after having a surgery on 07-11-20 on both of her wrists by Dr. Dior here at our hospital. She reports some pain and swelling on the right hand. The pain is a throbbing sharp shooting pain. She denies any numbness weakness or tingling distal to the injury. Patient reports that the wrap postoperatively is too tight and she is having swelling in her fingers. Review of systems negative for chest pain shortness of breath vomiting fevers chills. The left arm had wrist surgery as well she reports no changes. She had some numbness in her fingers which is not new. ED course: 55-year-old female presenting with a splint that was wrapped too tight causing the patient to be in pain. I unwrapped it and rewrapped it. Patient is feeling much better afterwards. We will discharge her to follow-up with Dr. Dior today or tomorrow. Heart Score: Risk Factors: Risk Factors: DM, Current or recent (<one month) smoker, HTN, HLP, family history of CAD, obesity. Risk Scores: Score 0 - 3: 2.5% MACE over next 6 weeks - Discharge Home Score 4 - 6: 20.3% MACE over next 6 weeks - Admit for Clinical Observation Score 7 - 10: 72.7% MACE over next 6 weeks - Early Invasive Strategies Allergies: Allergies: Allergies Coded Allergies Type Severity Reaction Last Updated Verified No Known Drug Allergies 07/07/20 No Physical Exam: PE: Constitutional: Well developed, well nourished, no acute distress, non-toxic appearance. [] HENT: Normocephalic, atraumatic, bilateral external ears normal, oropharynx moist, no oral exudates, nose normal. [] Eyes: PERRLA, EOMI, conjunctiva normal, no discharge. [] Neck: Normal range of motion, no tenderness, supple, no stridor. [] Cardiovascular:Heart rate regular rhythm, no murmur [] Lungs & Thorax: Bilateral breath sounds clear to auscultation [] Abdomen: Bowel sounds normal, soft, no tenderness, no masses, no pulsatile masses. [] Skin: Warm, dry, no erythema, no rash. [] Back: No tenderness, no CVA tenderness. [] Extremities: Bilateral wrists are wrapped after the surgery. The right hand is wrapped too tight with some swelling distally. Palpable pulse with 2-second up refill. Normal motor and sensory function of the right hand. The left wrist she reports some sensation being decreased this is not a new finding. Neurologic: Alert and oriented X 3, normal motor function, normal sensory function, no focal deficits noted. [] Psychologic: Affect normal, judgement normal, mood normal. [] Current Patient Data: Vital Signs: Vital Signs Date Time Temp Pulse Resp B/P (MAP) Pulse Ox O2 Delivery O2 Flow Rate FiO2 07/14/20 13:08 98.1 93 16 129/68 (88) 98 Room Air 98.1 EKG: EKG: [] Radiology/Procedures: Radiology/Procedures: [] Course & Med Decision Making: Course & Med Decision Making Pertinent Labs and Imaging studies reviewed. (See chart for details) [] Dragon Disclaimer: Dragon Disclaimer: This electronic medical record was generated, in whole or in part, using a voice recognition dictation system. Departure Departure Impression: Primary Impression: Hand pain, right Disposition: HOME, SELF-CARE Condition: STABLE Referrals: TEJINDER JOHN MD (PCP) Justicifation of Admission Dx: Justifications for Admission: Justification of Admission Dx: N/A AMOL KOHLER MD Jul 14, 2020 13:27
== END 2020-07-14 13:31 | disposition home or self-care (01) ==
LOC: ER 12:48
DX: M79.641 Pain in right hand (principal); R22.31 Localized swelling, mass and lump, right upper limb; F31.9 Bipolar disorder, unspecified; E11.9 Type 2 diabetes mellitus without complications; I10 Essential (primary) hypertension; F17.200 Nicotine dependence, unspecified, uncomplicated
CPT/HCPCS: 99281

== ENCOUNTER 2021-02-24 20:18 | Emergency (ER) | payer MEDICAID, MEDICARE ==
[~2021-02-24] VITALS: Ht 154.9 cm; Wt 69.1 kg
[~2021-02-24 20:18] MED LIST changes: +AMLO-186 PO; -AMLO5TAB10 PO
[2021-02-24 20:20] VITALS: BP 132/69
[2021-02-24] MEDS ORDERED: NAPROXEN 500 MG TABLET PO STA (20:44)
[2021-02-24] MEDS ORDERED: GABA300C18 PO (20:56)
[2021-02-24] MEDS ORDERED: NAPR-695 PO (20:56)
[2021-02-24] MEDS ORDERED: CYCL10TA2 PO (20:56)
--- NOTE | 2021-02-24 20:56 | PHYS DOC ---
Past Medical History Past Medical History: Bipolar, Diabetes-Type II, Hypertension, Sciatica Additional Past Medical Histor: BIPOLAR (JOSESITO MAY HOME BUILDER) Past Surgical History: Hysterectomy, Tubal ligation, Other Additional Past Surgical Histo: Eye surgery, Carpel tunnel R) side, Cyst removal from R) breast,cataracts (JOSESITO MAY HOME BUILDER) Smoking Status: Current Every Day Smoker Alcohol Use: None Drug Use: None (JOSESITO MAY HOME BUILDER) General Adult EDM: Chief Complaint: BACK PAIN - NO INJURY HPI: HPI: Patient is a 55 year old female with history of diabetes type 2, hypertension, sciatica, who presents the ED today complaining of mild intermittent right lower back pain radiating to the right lower extremity consistent with sciatica, symptoms have been going on for 2 to 3 days. Patient denies any injuries. Denies any loss of bowel/bladder function. She states the pain is worse on weightbearing. Describes the pain as throbbing. (JOSESITO MAY HOME BUILDER) Review of Systems: Review of Systems: Constitutional: Denies fever or chills. [] GI: Denies abdominal pain, nausea, vomiting, bloody stools or diarrhea. [] : Denies dysuria. [] Musculoskeletal: Reports right low back pain radiating to the right lower extremity Integument: Denies rash. [] Neurologic: Denies headache, focal weakness or sensory changes. [] Psychiatric: Denies depression or anxiety. [] (JOSESITO MAY HOME BUILDER) Heart Score: C/O Chest Pain: N/A Risk Factors: Risk Factors: DM, Current or recent (<one month) smoker, HTN, HLP, family history of CAD, obesity. Risk Scores: Score 0 - 3: 2.5% MACE over next 6 weeks - Discharge Home Score 4 - 6: 20.3% MACE over next 6 weeks - Admit for Clinical Observation Score 7 - 10: 72.7% MACE over next 6 weeks - Early Invasive Strategies (JOSESITO MAY Yolanda HOME BUILDER) Current Medications: Current Medications Medications (Trade) Dose Ordered Sig/Adilene Start Time Stop Time Status Last Admin Dose Admin Acetaminophen/ Hydrocodone Bitart (Lortab 5/325) 1 tab 1X ONCE 02/24/21 21:00 02/24/21 21:01 Cyclobenzaprine HCl (Flexeril) 10 mg 1X ONCE 02/24/21 21:00 02/24/21 21:01 Naproxen (Naprosyn) 500 mg 1X STAT 02/24/21 20:44 02/24/21 20:48 DC (JOSESITO MAY APRN) Allergies: Allergies: Allergies Coded Allergies Type Severity Reaction Last Updated Verified No Known Drug Allergies 07/07/20 No (JOSESITO MAY APRN) Physical Exam: PE: Constitutional: Well developed, well nourished, no acute distress, non-toxic appearance. [] Abdomen: Bowel sounds normal, soft, no tenderness, no masses, no pulsatile masses. [] Skin: Warm, dry, no erythema, no rash. [] Back: Mild tenderness to the right SI joint, no midline lumbar spine tenderness, no CVA tenderness. [] Extremities: No tenderness, no cyanosis, no clubbing, ROM intact, no edema. [] Neurologic: Alert and oriented X 3, normal motor function, normal sensory function, no focal deficits noted. [] Psychologic: Affect normal, judgement normal, mood normal. [] (JOSESITO MAY APRN) EKG: EKG: [] (JOSESITO MAY APRN) Radiology/Procedures: Radiology/Procedures: [] (JOSESITO MAY APRN) Course & Med Decision Making: Course & Med Decision Making Pertinent Labs and Imaging studies reviewed. (See chart for details) This is a 55-year-old female patient presented to the ED today with exacerbation of sciatic nerve pain. Patient has no cauda equina syndrome symptoms. We will manage her pain and send her home (JOSESITO MAY APRN) Dragon Disclaimer: Dragcristi Disclaimer: This electronic medical record was generated, in whole or in part, using a voice recognition dictation system. (JOSESITO MAY APRN) Departure Departure Impression: Primary Impression: Sciatica Qualified Codes: M54.31 - Sciatica, right side Disposition: HOME / SELF CARE / HOMELESS Condition: STABLE Referrals: TEJINDER JOHN MD (PCP) Follow-up next week Patient Instructions: Sciatica, [id number] Additional Instructions: You were seen for sciatic nerve pain. Take the prescribed medications as ordered. Follow-up with your doctor next week Scripts Gabapentin (GABAPENTIN ) 300 Mg Capsule 300 MG PO TID for NEUROGENIC PAIN, #30 CAP Prov: JOSESITO MAY Yolanda ERNANDEZ 02/24/21 Naproxen (NAPROXEN) 375 Mg Tablet 1 TAB PO BID for pain, #20 TAB 0 Refills with food Prov: JOSESITO MAY Yolanda ERNANDEZ 02/24/21 Cyclobenzaprine Hcl (CYCLOBENZAPRINE HCL) 10 Mg Tablet 1 TAB PO TID, #30 TAB Prov: JOSESITO MAY APRN 02/24/21 Attending Signature Attending Signature I have reviewed the PA/TOP POLISHER's note and plan of care. I was available for consultation as needed during the patient's visit in the emergency department. I agree with the clinical impression, plan, and disposition. (JEANMARIE LIU DO) JOSESITO MAY APRN February 24, 2021 20:56 JEANMARIE LIU DO February 25, 2021 00:11
[2021-02-24] MEDS ORDERED: HYDROcodone/APAP 5/325MG 1 TAB TABLET PO ONE (21:00)
[2021-02-24] MEDS ORDERED: CYCLOBENZAPRINE 10 MG TABLET. PO ONE (21:00)
== END 2021-02-24 21:08 | disposition home or self-care (01) ==
LOC: ER 20:18
DX: M54.41 Lumbago with sciatica, right side (principal); F31.9 Bipolar disorder, unspecified; E11.9 Type 2 diabetes mellitus without complications; I10 Essential (primary) hypertension; F17.200 Nicotine dependence, unspecified, uncomplicated; Z90.710 Acquired absence of both cervix and uterus; Z98.51 Tubal ligation status
CPT/HCPCS: 99284

== ENCOUNTER 2021-07-06 04:24 | Emergency (ER) | payer MEDICARE ==
[~2021-07-06] VITALS: Ht 154.9 cm; Wt 73.0 kg
[~2021-07-06 04:24] MED LIST changes: +GABA300C18 PO; +NAPR-695 PO
[2021-07-06 04:35] VITALS: BP 126/83
[2021-07-06] MEDS ORDERED: HYDR-2759 PO (04:50)
--- NOTE | 2021-07-06 04:51 | PHYS DOC ---
Past Medical History Past Medical History: Bipolar, Diabetes-Type II, Hypertension, Sciatica Additional Past Medical Histor: BIPOLAR Past Surgical History: Hysterectomy, Tubal ligation, Other Additional Past Surgical Histo: Eye surgery, Carpel tunnel R) side, Cyst removal from R) breast,cataracts Smoking Status: Current Every Day Smoker Alcohol Use: None Drug Use: None General Adult EDM: Chief Complaint: LOWER BACK PAIN OR INJURY HPI: HPI: Patient is a 56 year old female with past medical history of chronic right lo wer back pain presents with a chief complaint of back pain. Patient denies any injuries. Patient states pain is in its typical location right lower lumbar paraspinal region and buttocks with radiation down leg. Patient has been taking all her prescription medications as prescribed with no relief. Patient states when pain becomes this bad she comes to the emergency department to get a shot. Patient denies any recent injuries related to her back pain. She has no saddle anesthesia or loss of bowel or bladder. Patient ambulated into the ER. She was driven by family member. Review of Systems: Review of Systems: Review of systems: Constitutional symptoms- No fever, no chills. Eyes- No Discharge, No Visual Loss Respiratory symptoms- No shortness of breath, No wheezing, No Dyspnea on Exertion Cardiovascular Systems; No chest pain, No Palpitations, No syncope Gastrointestinal symptoms: NO abdominal pain, no nausea, no vomiting or diarrhea. Genitourinary symptoms: No dysuria. Musculoskeletal symptoms: Positive back pain No extremity pain. NEUROLOGICAL Symptoms: No headache, no generalized weakness; No focal Weakness Skin: No rash. Heart Score: C/O Chest Pain: N/A Risk Factors: Risk Factors: DM, Current or recent (<one month) smoker, HTN, HLP, family history of CAD, obesity. Risk Scores: Score 0 - 3: 2.5% MACE over next 6 weeks - Discharge Home Score 4 - 6: 20.3% MACE over next 6 weeks - Admit for Clinical Observation Score 7 - 10: 72.7% MACE over next 6 weeks - Early Invasive Strategies Allergies: Allergies: Allergies Coded Allergies Type Severity Reaction Last Updated Verified No Known Drug Allergies 07/07/20 No Physical Exam: PE: General: alert, no acute distress. Skin: warm, dry and intact, no erythema, no rash. HENT: bilateral external ears normal, oropharynx moist, nose normal. Head:: Normocephalic, atraumatic. Neck: Trachea midline. Eyes: EOMI, Normal conjunctiva, No drainage CARDIOVASCULAR: Regular rate and rhythm RESPIRATORY: No respiratory distress Back: Full range of motion. MUSCULOSKELETAL: Full range of motion of bilateral upper and lower extremities. Paraspinal tenderness L4-L5 on the right tenderness to the right buttocks GASTROINTESTINAL: Abdomen soft without rebound or guarding. NEUROLOGICAL: Alert and noted to person, place and time. No neurological deficits observed Psychiatric: Cooperative. Normal judgment EKG: EKG: [] Radiology/Procedures: Radiology/Procedures: [] Course & Med Decision Making: Course & Med Decision Making Pertinent Labs and Imaging studies reviewed. (See chart for details) [] Dragon Disclaimer: Dragon Disclaimer: This electronic medical record was generated, in whole or in part, using a voice recognition dictation system. Departure Departure Impression: Primary Impression: Back pain Disposition: HOME / SELF CARE / HOMELESS Condition: STABLE Referrals: TEJINDER JOHN MD (PCP) Patient Instructions: Back Pain, Adult Scripts Hydrocodone/Acetaminophen (Hydrocodone-Acetamin 5-325 mg) 1 Each Tablet 1 EACH PO Q4-6HRS, #14 TAB Prov: NAYELI PROCTOR DO 07/06/21 NAYELI PROCTOR DO Jul 06, 2021 04:51
[2021-07-06] MEDS ORDERED: HYDROcodone/APAP 5/325MG 1 TAB TABLET PO ONE (05:00)
[2021-07-06] MEDS ORDERED: KETOROLAC 60 MG/2 ML VIAL. IM ONE (05:00)
== END 2021-07-06 05:26 | disposition home or self-care (01) ==
LOC: ER 04:24
DX: M54.5 Low back pain (principal); F31.9 Bipolar disorder, unspecified; E11.9 Type 2 diabetes mellitus without complications; I10 Essential (primary) hypertension; F17.200 Nicotine dependence, unspecified, uncomplicated; Z90.710 Acquired absence of both cervix and uterus; Z98.51 Tubal ligation status
CPT/HCPCS: 96372; 99283; J1885

== ENCOUNTER 2021-10-23 14:52 | Emergency (ER) | payer MEDICARE ==
[~2021-10-23 14:52] MED LIST changes: +CYCL10TA19 PO; -CYCL10TA2 PO; +HYDR-2759 PO
== END 2021-10-23 17:58 | disposition left against medical advice (07) ==
LOC: ER 14:52
DX: H92.09 Otalgia, unspecified ear (principal); Z53.21 Procedure and treatment not carried out due to patient leaving prior to being seen by health care provider